=== PATIENT | female | born 1975 | race Caucasian/White ===

== ENCOUNTER 2018-03-15 21:45 | Emergency (ER) | payer MEDICAID, OTHER ==
[2018-03-15 22:20] VITALS: TEMP 98.9
[2018-03-15] MEDS ORDERED: Sodium Chloride 0.9% 1,000 ML IV STA (22:47)
[2018-03-15 23:09] VITALS: O2SAT 100
[2018-03-15 23:59] LABS: SQUAMOUS EPITHIAL < 1 /hpf (0-5); URINE BACTERIA OCC (<OCC); URINE BILIRUBIN NEGATIVE (NEGATIVE); URINE BLOOD SMALL (NEGATIVE); URINE CLARITY CLEAR (Clear); URINE GLUCOSE (UA) NEG (Normal); URINE LEUKOCYTE ESTERASE NEG Leu/uL (Negative); URINE PROTEIN NEGATIVE (NEGATIVE); URINE UROBILINOGEN 0.2-1.0 mg/dL (0.2-1.0)
[2018-03-16 00:01] LABS: URINE COLOR YELLOW (YELLOW)
[2018-03-16 00:20] LABS: BASO % 0.8 % (0.0-2.0); EOS # 0.1 K/uL (0.0-0.7); EOS % 1.3 % (0.0-4.0); HEMOGLOBIN 10.2 g/dL (12.0-16.0); LYMPH # 2.8 K/uL (1.0-4.3); LYMPH % 46.3 % (20.0-40.0); MEAN CELL VOLUME 80.6 fl (81.0-99.0); MEAN CORPUSCULAR HEMOGLOBIN 26.2 pg (27.0-31.0); MEAN CORPUSCULAR HGB CONC 32.5 g/dL (33.0-37.0); MEAN PLATELET VOLUME 8.8 fl (7.2-11.7); MONO # 0.4 K/uL (0.0-0.8); MONO % 7.4 % (0.0-10.0); NEUT # 2.6 K/uL (1.8-7.0); NEUT % 44.2 % (50.0-75.0); RBC 3.87 Mil/uL (3.80-5.20); RED CELL DISTRIBUTION WIDTH 16.4 % (11.5-14.5)
[2018-03-16 00:29] LABS: ALB/GLOB RATIO 1.2 (1.0-2.1); ALBUMIN 3.6 g/dL (3.5-5.0); ALT/SGPT 28 U/L (9-52); AST/SGOT 21 U/L (14-36); BLOOD UREA NITROGEN 15 mg/dl (7-17); CALCIUM 8.2 mg/dL (8.4-10.2); GFR NON-AFRICAN AMERICAN > 60; LIPASE 50 U/L (23-300)
--- NOTE | 2018-03-16 00:50 | ED PDOC ---
HPI: Headache Time Seen by Provider: 03/15/18 22:28 Chief Complaint (Nursing): Headache Chief Complaint (Provider): Headache History Per: Patient History/Exam Limitations: no limitations Onset/Duration Of Symptoms: Days (1x), Intermittent Episodes Current Symptoms Are (Timing): Still Present Severity: Moderate Associated Symptoms: Other (lip and hand numbness) Additional Complaint(s): 43 year old female with no pertinent past medical history presents to the ED with complaints of a right sided headache that started 1x day ago. Patient reports having associated symptoms of lip and hand numbness for 1x day, and intermittent right posterior neck pain radiating to the right side of her head. Patient denies having trouble speaking or walking. Patient states that she has been stressed recently, but is unwilling to specify why. Patient denies having chest pain, but reports having epigastric pain which has resolved. Patient denies nausea and vomiting. PMD: Chio Freeman MD Past Medical History Reviewed: Historical Data, Nursing Documentation, Vital Signs Vital Signs: Last Vital Signs Temp 98.9 F 03/15/18 22:16 Pulse 63 03/15/18 22:50 Resp 18 03/15/18 22:50 BP 139/77 03/15/18 22:50 Pulse Ox 100 03/15/18 22:50 - Medical History PMH: No Chronic Diseases - Family History Family History: States: No Known Family Hx - Social History Alcohol: None Drugs: Denies - Home Medications Home Medications: Ambulatory Orders Medication Instructions Recorded Cyclobenzaprine [Cyclobenzaprine 10 mg PO TID PRN #15 tab 03/16/18 HCl] - Allergies Allergies/Adverse Reactions: Allergies Allergy/AdvReac Type Severity Reaction Status Date / Time No Known Allergies Allergy Verified 03/15/18 22:14 Review of Systems ROS Statement: Except As Marked, All Systems Reviewed And Found Negative Cardiovascular: Negative for: Chest Pain Gastrointestinal: Positive for: Abdominal Pain (epigastric pain, has since resolved). Negative for: Nausea, Vomiting Neurological: Positive for: Numbness (lip and hand numbness.), Headache (right sided). Negative for: Incoordination (patient denies trouble speaking or walking) Physical Exam - Reviewed Nursing Documentation Reviewed: Yes Vital Signs Reviewed: Yes - Physical Exam Appears: Positive for: Well, Non-toxic, No Acute Distress Head Exam: Positive for: ATRAUMATIC, NORMOCEPHALIC Skin: Positive for: Normal Color Eye Exam: Positive for: Normal appearance ENT: Positive for: Normal ENT Inspection Neck: Positive for: Normal, Painless ROM, Supple Cardiovascular/Chest: Positive for: Regular Rate, Rhythm Respiratory: Positive for: Normal Breath Sounds Gastrointestinal/Abdominal: Positive for: Normal Exam, Soft. Negative for: Tenderness Extremity: Positive for: Normal ROM Neurologic/Psych: Positive for: Alert, Oriented (3x) - Laboratory Results Result Diagrams: 03/15/18 23:58 03/15/18 23:58 - ECG O2 Sat by Pulse Oximetry: 100 (RA) Pulse Ox Interpretation: Normal Medical Decision Making Medical Decision Makin:28 Initial impression: 43 year old female with right sided neck pain and headache insetting of stress. Initial plan: * CT head w/o contrast * ECG * chem * udip * upreg * urinalysis * CBC * flexeril 10 mg PO * NaCl 0.9% 1,000 mL IV 1,000 mL/hr * pepcid 20 mg IV * toradol 30 mg IV * reevaluation 1:00 CT head showed no acute findings. Upon provider reevaluation patient has had an improvement of symptoms, is medically stable, and requires no further treatment in the ED at this time. Patient will be discharged. Counseling was provided and all questions were answered regarding diagnosis of a tension headache and anxiety. There is agreement to discharge plan. Return if symptoms persist or worsen. Scribe Attestation: Documented by Kylee Nash, acting as a scribe for Mayur Yarbrough MD. Provider Scribe Attestation: All medical record entries made by the Scribe were at my direction and personally dictated by me. I have reviewed the chart and agree that the record accurately reflects my personal performance of the history, physical exam, medical decision making, and the department course for this patient. I have also personally directed, reviewed, and agree with the discharge instructions and disposition. Disposition - Clinical Impression Clinical Impression: Tension headache, Anxiety - Disposition Disposition Time: 01:00 Condition: IMPROVED Prescriptions: Cyclobenzaprine [Cyclobenzaprine HCl] 10 mg PO TID PRN #15 tab PRN Reason: neck pain/headache Instructions: Tension Headache, Anxiety, Adult (DC) Forms: [facility] (Maltese) Print Language: KAZAKH
[2018-03-16 01:21] VITALS: BP 119/72; PULSE 61; RESP 19
--- NOTE | 2018-03-16 06:51 | CARD ---
APPROVED REPORT Date of service: 03/15/2018 EKG Measurement Heart [id number] <Conclusion> Normal sinus rhythm Low voltage QRS Septal infarct, age undetermined Abnormal ECG
--- NOTE | 2018-03-16 08:23 | CT ---
Date of service: 03/16/2018 PROCEDURE: CT HEAD WITHOUT CONTRAST. HISTORY: headache COMPARISON: None available. TECHNIQUE: Axial computed tomography images were obtained through the head/brain without intravenous contrast. Radiation dose: Total exam DLP = 747 mGy-cm. This CT exam was performed using one or more of the following dose reduction techniques: Automated exposure control, adjustment of the mA and/or kV according to patient size, and/or use of iterative reconstruction technique. FINDINGS: HEMORRHAGE: No intracranial hemorrhage. BRAIN: No mass effect or edema. No atrophy or chronic microvascular ischemic changes. VENTRICLES: Unremarkable. No hydrocephalus. CALVARIUM: Unremarkable. PARANASAL SINUSES: Unremarkable as visualized. No significant inflammatory changes. MASTOID AIR CELLS: Unremarkable as visualized. No inflammatory changes. OTHER FINDINGS: None. IMPRESSION: Normal CT of the Head. Concordant results (preliminary interpretation) provided by [facility].
== END 2018-03-16 01:38 | disposition home or self-care (01) ==
LOC: H.ER 21:45
DX: G44.209 Tension-type headache, unspecified, not intractable (principal); F41.9 Anxiety disorder, unspecified; R20.2 Paresthesia of skin
CPT/HCPCS: 70450; 80053; 81003; 82550; 83690; 83735; 84443; 85025; 93005; 96360; 99285; J1885; J7030